=== PATIENT | female | born 1980 | race African-American/Black ===

== ENCOUNTER 2023-11-02 13:42 | Emergency (ER) | payer BC ==
[~2023-11-02] VITALS: Ht 165.1 cm; Wt 71.0 kg
[2023-11-02 13:47] VITALS: BP 149/93; PULSE 91; RESP 20; TEMP 98; O2SAT 100
[2023-11-02 17:17] LABS: EOSINOPHILS % 2.2 % (0.0-5.0); HEMATOCRIT. 41.1 % (36.0-48.0); HEMOGLOBIN. 13.6 g/dL (12.0-16.0); LYMPHOCYTES % 35.1 % (20.0-50.0); MEAN CORPUSCULAR HEMOGLOBIN 30.6 pg (28.0-32.0); MEAN CORPUSCULAR VOLUME 92.6 fL (81.0-99.0); MEAN PLATELET VOLUME 7.5 fl (7.4-10.4); MONOCYTES % 9.1 % (2.0-8.0); NEUTROPHILS % 52.6 % (40.0-76.0); PLATELET 245 x1000/uL (130-400); RED BLOOD CELL COUNT 4.44 mill/uL (4.2-5.4); RED CELL DISTRIBUTION WIDTH 14.6 % (11.6-14.6); WHITE BLOOD COUNT 4.1 x1000/uL (4.5-11.0)
[2023-11-02 17:30] LABS: ALANINE AMINOTRANSFERASE 18 IU/L (10-49); ALBUMIN 4.6 g/dL (3.2-4.8); ASPARTATE AMINOTRANSFERASE 17 IU/L (<34); BILIRUBIN TOTAL 0.5 mg/dL (0.1-1.0); CARBON DIOXIDE 26 mEq/L (21-32); CHLORIDE 103 mEq/L (98-107); GLUCOSE 90 mg/dL (70-105); POTASSIUM 4.3 mEq/L (3.5-5.1); PROTEIN TOTAL 7.1 g/dL (6.0-8.3); SODIUM 138 mEq/L (136-145); TROPONIN I HIGH SENSITIVITY 10 ng/L (3.0-34); UREA NITROGEN BLOOD 15 mg/dL (9-23)
[2023-11-02] MEDS ORDERED: TOPUD MT (18:51)
[2023-11-02] MEDS ORDERED: IBUP-1523 MT (18:51)
== END 2023-11-03 00:29 | disposition home or self-care (01) ==
LOC: ER 13:42
DX: R22.2 Localized swelling, mass and lump, trunk (principal); Z88.0 Allergy status to penicillin
CPT/HCPCS: 36415; 80053; 83880; 84484; 85025; 85379; 99283